=== PATIENT | male | born 1955 | race Caucasian/White ===

== ENCOUNTER 2019-01-09 12:50 | Emergency (ER) | payer OTHER ==
[~2019-01-09] VITALS: Ht 172.7 cm; Wt 115.7 kg
[2019-01-09 13:04] VITALS: BP 144/98
--- NOTE | 2019-01-09 13:10 | NUR ---
PT AMB TO BED 11 WITH STEADY GAIT
--- NOTE | 2019-01-09 13:15 | NUR ---
PT PRESENTS TO ED WITH C/O WORSENING RASH X 2 WEEKS. +ITCHING;DENIES ANY PAIN. PT DENIES USING NEW HYGIENE PRODUCTS OR NEW MEDICATION. NO RESPIRATORY DISTRESS NOTED. VSS. ERMD TO EVALUATE PT.
--- NOTE | 2019-01-09 14:04 | NUR ---
LAB AT BEDSIDE
[2019-01-09 14:22] LABS: BASOPHILS % (AUTO) 0.7 % (0.0-2.0); EOSINOPHILS # (AUTO) 0.2 K/uL (0-0.4); HEMATOCRIT 41.7 % (36-52); HEMOGLOBIN 14.3 g/dL (12.0-18.0); LYMPHOCYTES # (AUTO) 1.3 K/uL (2.0-11.5); LYMPHOCYTES % (AUTO) 19.2 % (20.5-51.1); MEAN CORPUSCULAR HEMOGLOBIN 33 pg (27-31); MEAN CORPUSCULAR HGB CONC 34 g/dL (33-37); MEAN CORPUSCULAR VOLUME 96.2 fL (80-94); MONOCYTES # (AUTO) 0.4 K/uL (0.8-1.0); MONOCYTES % (AUTO) 6.1 % (1.7-9.3); NEUTROPHILS # (AUTO) 4.9 K/uL (1.8-7.7); PLATELET COUNT (AUTO) 272 K/uL (140-450); RED BLOOD CELL COUNT(AUTO) 4.34 MIL/uL (4.20-6.10); RED CELL DISTRIBUTION WIDTH 15.7 % (11.6-13.7); WHITE BLOOD COUNT (AUTO) 6.9 K/uL (4.8-10.8)
[2019-01-09 14:40] LABS: ANION GAP 19.1 (8-16); CARBON DIOXIDE 22.5 mmol/L (21-32); POTASSIUM 3.6 mmol/L (3.5-5.1)
[2019-01-09 14:46] LABS: ALBUMIN 3.9 g/dL (3.4-5.0); TOTAL BILIRUBIN 0.6 mg/dL (0.0-1.0)
[2019-01-09 14:58] VITALS: BP 144/98
[2019-01-09 14:58] LABS: URIC ACID 6.1 mg/dL (2.6-7.2)
== END 2019-01-09 14:58 | disposition home or self-care (01) ==
LOC: MED 12:50
DX: L50.8 Other urticaria (principal); E11.9 Type 2 diabetes mellitus without complications; I10 Essential (primary) hypertension; E66.9 Obesity, unspecified; L40.9 Psoriasis, unspecified; E78.00 Pure hypercholesterolemia, unspecified; Z68.38 Body mass index [BMI] 38.0-38.9, adult
CPT/HCPCS: 36415; 80053; 84550; 85025; 85613; 99283